=== PATIENT | male | born 1980 | race Caucasian/White ===

== ENCOUNTER 2022-02-03 06:12 | Emergency (ER) | payer OTHER, SELFPAY ==
--- NOTE | ~2022-02-03 | CT_ITS ---
EXAMINATION: CT abdomen pelvis wo con DATE: 02/03/2022 07:12 INDICATION: Lower abdominal pain wrapping around to the flank. TECHNIQUE: Computed tomography (CT) of the abdomen and pelvis was performed without intravenous contr ast. Automated exposure control and iterative reconstruction technique were employed. The dose-length product was 444.46 mGy-cm. COMPARISON: None FINDINGS: Lung bases are clear. Heart size is normal. No pericardial or pleural effusion. Liver, gallbladder, s pleen, pancreas and bilateral adrenal glands are normal. Non-2 mm stone at the right ureterovesicular junction with mild right hydroureteronephrosis. Left kidney and ureter are normal with no urolithias is. The decompressed bladder is otherwise unremarkable. Bowels including the appendix are normal. No free intraperitoneal gas or fluid. No pathologically enlarged abdominal or pelvic lymphadenopathy. Mi ld lower thoracic spondylosis. IMPRESSION: 1. At least partially obstructing 1-2 mm stone at the right ureterovesicular junction with mild right hydroureteronephrosis. Reviewed, dictated and finalized at location A. IMPRESSION: 1. At least partially obstructing 1-2 mm stone at the right ureterovesicular ju nction with mild right hydroureteronephrosis.
[2022-02-03 06:23] VITALS: BP 142/60; PULSE 102; RESP 20; TEMP 36.6; O2SAT 100
--- NOTE | 2022-02-03 06:25 | ECG_ITS ---
Measurements Intervals [place] Rate: 42 P: 38 CO: 159 QRS: 37 QRSD: 85 T: 0 QT: 424 QTc: 358 Interpretive Statements SINUS BRADYCARDIA WITH SINUS ARRHYTHMIA BORDERLINE ECG NO PREVIOUS ECG AVAILABLE FOR COMPARISON Electronically Signed On 02-03-2022 14:49:45 CDT by Stef You M.D.
[2022-02-03] MEDS: ONDANSETRON INJ 4 MG/2 ML VIAL IV PUSH (06:28)
--- NOTE | 2022-02-03 06:28 | ED.ABDPAIN ---
HPI - Abdominal Pain General Chief Complaint: Abdominal Pain <Stef Robledo MD - Last Filed: 02/03/22 07:00> Stated Complaint: VOMITING <Stef Robledo MD - Last Filed: 02/03/22 07:00> Source: patient <Stef Robledo MD - Last Filed: 02/03/22 07:00> Mode of arrival: ambulatory <Stef Robledo MD - Last Filed: 02/03/22 07:00> Limitations: no limitations <Stef Robledo MD - Last Filed: 02/03/22 07:00> History of Present Illness HPI narrative: this is a 41-year-old gentleman that presents with abdominal pain /flank pain that started at 3 in the morning he rates it at about a 10/10 with nausea localizing to his right lower quadrant and bilateral flanks with pressure in his periumbilical area with some dysuria with no fever chills no chest pain no shortness of breath no diarrhea or constipation. <Stef Robledo MD - Last Filed: 02/03/22 07:00> MD elicited complaint: abdominal pain and flank pain <Stef Robledo MD - Last Filed: 02/03/22 07:00> Onset (ago): hour(s) <Stef Robledo MD - Last Filed: 02/03/22 07:00> Pain Consistency: constant <Stef Robledo MD - Last Filed: 02/03/22 07:00> Location: RLQ, L flank and R flank <Stef Robledo MD - Last Filed: 02/03/22 07:00> Severity: severe <Stef Robledo MD - Last Filed: 02/03/22 07:00> Pain scale (0-10): 10 <Stef Robledo MD - Last Filed: 02/03/22 07:00> Quality: sharp <Stef Robledo MD - Last Filed: 02/03/22 07:00> Associated symptoms: nausea and dysuria <MD Marlen Gamino Last Filed: 02/03/22 07:00> Related Data Allergies/Adverse Reactions: Allergies Allergy/AdvReac Type Severity Reaction Status Date / Time No Known Allergies Allergy Mild Unverified 08/04/08 10:45 <Stef Robledo MD - Last Filed: 02/03/22 07:00> Review of Systems Review of Systems: All systems reviewed & are unremarkable except as noted in HPI and below <Stef Robledo MD - Last Filed: 02/03/22 07:00> [facility] Past Medical History Medical History: Medical History (Updated 02/03/22 @ 09:01 by Celestine Stovall MD) Patient denies medical problems <Stef Robledo MD - Last Filed: 02/03/22 07:00> Exam Const: General: healthy appearing <Stef Robledo MD - Last Filed: 02/03/22 07:00> Limitations: no limitations <Stef Robledo MD - Last Filed: 02/03/22 07:00> HENMT: Head: normal to inspection <Stef Robledo MD - Last Filed: 02/03/22 07:00> Eyes: Conjunctivae: conjunctivae normal <Stef Robledo MD - Last Filed: 02/03/22 07:00> Direct Ophthalmoscopy: no photophobia <Stef Robledo MD - Last Filed: 02/03/22 07:00> Neck: Neck: normal visual inspection <Stef Robledo MD - Last Filed: 02/03/22 07:00> Chest: Chest palpation & inspection: normal inspection of the chest <Stef Robledo MD - Last Filed: 02/03/22 07:00> Resp: Effort & Inspection: normal respiratory effort <Stef Robledo MD - Last Filed: 02/03/22 07:00> Auscultation: clear to auscultation bilaterally <Stef Robledo MD - Last Filed: 02/03/22 07:00> Cardio: Rate: regular rate <Stef Robledo MD - Last Filed: 02/03/22 07:00> Rhythm: regular rhythm <Stef Robledo MD - Last Filed: 02/03/22 07:00> GI: GI Palp: Yes Soft to palpation and Yes Tenderness to palpation present (GI) <Stef Robledo MD - Last Filed: 02/03/22 07:00> Auscultation: normal bowel sounds <Stef Robledo MD - Last Filed: 02/03/22 07:00> Back/Spine/Pelvis: Back: CVA tenderness <Stef Robledo MD - Last Filed: 02/03/22 07:00> Skin: General skin exam: normal color <Stef Robledo MD - Last Filed: 02/03/22 07:00> Rashes: no rashes <Stef Robledo MD - Last Filed: 02/03/22 07:00> Neuro: General: patient oriented x3 and moves all extremities <Stef Robledo MD - Last Filed: 02/03/22 07:00> Extrem: General: norm
[2022-02-03] MEDS: SODIUM CHLORIDE 0.9% IV 1,000 ML 999 ML IV CONT (06:29)
[2022-02-03] MEDS: KETOROLAC 30 MG/ML VIAL (*BKC) IV PUSH (06:33)
[2022-02-03 06:45] LABS: Basophils Absolute Auto 0.08 K/mm3 (0.00-0.10); Basophils Percent Auto 0.6 % (0.0-1.0); Eosinophils Absolute Auto 0.43 K/mm3 (0.02-0.50); Hemoglobin 15.1 g/dL (14.0-18.0); Immature Granulocyte Absolute 0.08 K/mm3 (0.00-0.00); Immature Granulocyte Percent A 0.6 % (0.0-0.0); Lymphocytes Absolute Auto 1.74 K/mm3 (1.10-4.50); Lymphocytes Percent Auto 12.3 % (18.0-42.0); Mean Corpuscular Hemoglobin 29.9 pg (27.0-31.0); Mean Corpuscular Volume 83.2 fL (78.0-102.0); Mean Platelet Volume 10.3 fl (8.7-11.0); Monocytes Absolute Auto 0.55 K/mm3 (0.10-0.90); Monocytes Percent Auto 3.9 % (2.0-11.0); Neutrophils Absolute Auto 11.3 K/mm3 (1.7-7.2); Neutrophils Percent Auto 79.6 % (50.0-70.0); Platelet Count Result 260 K/mm3 (150-420); Red Blood Count 5.05 M/mm3 (4.70-6.10); Red Cell Distribution Width 11.9 % (11.6-14.4); White Blood Count 14.2 K/mm3 (4.8-10.8)
[2022-02-03 06:58] LABS: Partial Thromboplastin Time 27.4 SEC (23.90-30.70); Prothrombin Time 10.9 Seconds (9.50-12.10)
[2022-02-03 07:03] VITALS: BP 100/50; PULSE 60; RESP 20; TEMP 36.6; O2SAT 98
[2022-02-03 07:04] LABS: Lactic Acid Reflex 1.1 mmol/L (0.4-2.0)
[2022-02-03 07:09] LABS: CRP < 0.2 mg/dL (0.0-0.9)
[2022-02-03 07:10] LABS: Alanine Aminotransferase 39 U/L (16-63); Albumin Level 4.1 g/dL (3.4-5.0); Alkaline Phosphatase 79 U/L (46-116); Anion Gap 8 mmol/L (8-16); Aspartate Amino Transferase 19 U/L (15-37); Bilirubin,Total 0.6 mg/dL (0.00-1.00); Blood Urea Nitrogen 17 mg/dL (7-18); Calcium 8.5 mg/dL (8.5-10.1); Carbon Dioxide 24 mmol/L (21-32); Chloride 107 mmol/L (98-108); Estimated CRCL calculation 62 ml/min; Estimated Glomerular Filt Rate > 60; Glucose 119 mg/dL (70-99); Lipase 130 U/L (73-393); Osmolality Calculated 290 mOsm/kg (285-295); Potassium 3.5 mmol/L (3.5-5.1); Sodium 139 mmol/L (136-145); Total Protein 7.2 g/dL (6.4-8.2); Troponin I < 4.0 ng/L (0.00-60.4)
--- NOTE | 2022-02-03 07:57 | PC.NURSE ---
0700 resumed patient care from MYRA Snyder. pt resting per cot, mother at bedside. no complaints voiced per pt. call zhao in reach, enc to ring for assistance as needed.
[2022-02-03] MEDS: PANTOPRAZOLE SODIUM IV 40 MG VIAL IV PUSH (08:00)
[2022-02-03 08:14] VITALS: BP 125/86; PULSE 54; RESP 20; TEMP 37.1; O2SAT 98
[2022-02-03 08:21] LABS: Appearance Urine Clear (Clear); Color Urine Yellow (Yellow)
[2022-02-03 08:22] LABS: Bilirubin Urine Negative (Negative); Blood Urine 3+ (Negative); Glucose Urine UA Negative (Negative); Ketones Urine Negative (Negative); Nitrate Urine Negative (Negative); Protein Urine 1+ (Negative); Specific Grav Ur >= 1.030 (1.010-1.020); pH Urine 5.5 (5.0-8.0)
[2022-02-03 08:23] LABS: Add Urine Microscopic? YES; Bacteria Urine None seen /hpf; Leukocyte Esterase Ur Negative (Negative); Mucus Urine Moderate /lpf; RBC Urine 21-50 /hpf (0-2); Squamous Epithelial Cell Urine Rare /hpf (Few); WBC Urine 0-3 /hpf (0-3)
--- NOTE | 2022-02-03 08:38 | ECG_ITS ---
Measurements Intervals [place] Rate: 69 P: 43 [place]: 156 QRS: 33 QRSD: 84 T: 38 QT: 370 QTc: 397 Interpretive Statements SINUS RHYTHM WITH SINUS ARRHYTHMIA COMPARED TO ECG 02/03/2022 06:43:53 NO SIGNIFICANT DIFFERENCE Electronically Signed On 02-03-2022 14:50:13 CDT by Stef You M.D.
[2022-02-03 08:58] VITALS: BP 112/69; PULSE 66; RESP 20; TEMP 37.1; O2SAT 98
--- NOTE | 2022-02-03 10:23 | PC.NURSE ---
patient called, [employer] system is down due to power outage. will call in scrips to [facility] and call [facility] to cancel prescriptions.
== END 2022-02-03 09:15 | disposition home or self-care (01) ==
PROVIDERS: Emergency Provider Emergency Medicine
DX: N20.1 Calculus of ureter (principal)
CPT/HCPCS: 36415; 74176; 80053; 81001; 83605; 83690; 84484; 85025; 85610; 85730; 86140; 93005; 96365; 96375; 99284; C9113; J0696; J1885; J2405; J7030

== ENCOUNTER 2022-04-01 14:34 | Emergency (ER) | payer OTHER, SELFPAY | END 2022-04-01 16:06 | disposition left against medical advice (07) | PROVIDERS: Emergency Provider Nurse Practitioner | DX: Z53.21 Procedure and treatment not carried out due to patient leaving prior to being seen by health care provider (principal) | CPT/HCPCS: 99199 ==